=== PATIENT | female | born 1980 | race Caucasian/White ===

== ENCOUNTER 2020-11-18 10:57 | Outpatient (REF) | payer OTHER, SELFPAY ==
--- NOTE | ~2020-11-18 | MM_ITS ---
EXAMINATION: MM SCREENING DIGITAL BREAST TOMOSYNTHESIS, BILATERAL CLINICAL INFORMATION: Screening. Asymptomatic. The lifetime risk of breast cancer based on the Tyrer-Cuzick Model is 14%. COMPARISON: Mammography: 10/16/2019, 09/17/2018 TECHNIQUE: Digital breast tomosynthesis is performed in both the craniocaudal and mediolateral oblique views along with computer-aided detection (CAD). Synthesized 2D images are generated from the tomosynthesis. FINDINGS: There are scattered areas of fibroglandular density (ACR BI-RADS breast composition Category b). There are no significant masses, abnormal calcifications, or other abnormalities. No significant changes from prior studies MM/MM tomosynthesis screening BI IMPRESSION: No mammographic evidence of malignancy. ASSESSMENT: BI-RADS 1: Negative RECOMMENDATION: Routine annual mammography screening. This patient's information was entered into a reminder system with a target due date for their next mammogram.
== END 2020-11-18 10:58 | disposition home or self-care (01) ==
LOC: HO.MAMMO 10:57
PROVIDERS: PCP Internal Medicine; Visit Provider Internal Medicine
DX: Z12.31 Encounter for screening mammogram for malignant neoplasm of breast (principal)
CPT/HCPCS: 77063; 77067

== ENCOUNTER 2022-12-13 12:36 | Outpatient (REF) | payer OTHER, SELFPAY ==
--- NOTE | ~2022-12-13 | MM_ITS ---
EXAMINATION: MM SCREENING DIGITAL BREAST TOMOSYNTHESIS, BILATERAL CLINICAL INFORMATION: Screening. Asymptomatic. The lifetime risk of breast cancer based on the Tyrer-Cuzick Model is 13.1%. COMPARISON: Mammography: November 18, 2020 and studies dating back to September 17, 2018 TECHNIQUE: Digital breast tomosynthesis is performed in both the craniocaudal and mediolateral oblique views along with computer-aided detection (CAD). Synthesized 2D images are generated from the tomosynthesis. FINDINGS: The breasts are heterogeneously dense, which may obscure small masses (ACR BI-RADS breast composition Category c). There are no significant masses, abnormal calcifications, or other abnormalities. MM/MM tomosynthesis screening BI IMPRESSION: No significant changes from prior exam. ASSESSMENT: BI-RADS 1: Negative RECOMMENDATION: Routine annual mammography screening. This patient's information was entered into a reminder system with a target due date for their next mammogram.
== END 2022-12-13 12:37 | disposition home or self-care (01) ==
LOC: HO.MAMMO 12:36
PROVIDERS: PCP Internal Medicine; Visit Provider Internal Medicine
DX: Z12.31 Encounter for screening mammogram for malignant neoplasm of breast (principal)
CPT/HCPCS: 77063; 77067

== ENCOUNTER 2023-01-16 10:14 | Outpatient (REF) | payer OTHER, SELFPAY ==
[2023-01-19 08:54] LABS: HPV mRNA E6/E7 rflx Not Detected (Not Detected)
== END 2023-01-16 10:15 | disposition home or self-care (01) ==
LOC: HO.LNP 10:14
PROVIDERS: PCP Internal Medicine; Visit Provider Advanced Practice Midwife
DX: Z01.419 Encounter for gynecological examination (general) (routine) without abnormal findings (principal); N84.1 Polyp of cervix uteri
CPT/HCPCS: 87624; 88142

== ENCOUNTER 2023-01-24 10:20 | Outpatient (REF) | payer OTHER, SELFPAY | END 2023-01-24 10:21 | disposition home or self-care (01) | LOC: HO.LAB 10:20 | PROVIDERS: PCP Internal Medicine; Visit Provider Advanced Practice Midwife | DX: N84.1 Polyp of cervix uteri (principal) | CPT/HCPCS: 57500; 81025; 88305 ==

== ENCOUNTER 2023-12-17 12:42 | Outpatient (REF) | payer OTHER, SELFPAY ==
--- NOTE | ~2023-12-17 | MM_ITS ---
EXAMINATION: MM SCREENING DIGITAL BREAST TOMOSYNTHESIS, BILATERAL CLINICAL INFORMATION: Screening. Asymptomatic. COMPARISON: Mammography: 12/13/2022, 11/18/2020, 10/16/2019, and 09/17/2018. TECHNIQUE: Digital breast tomosynthesis is performed in both the craniocaudal and mediolateral oblique views along with computer-aided detection (CAD). Synthesized 2D images are generated from the tomosynthesis. FINDINGS: The breasts are heterogeneously dense, which may obscure small masses (ACR BI-RADS breast composition Category c). There are no suspicious masses, suspicious grouped calcifications, or areas of architectural distortion in either breast. The parenchymal pattern is stable from prior exams. No skin or axillary abnormality. MM/MM tomosynthesis screening BI IMPRESSION: No mammographic evidence of malignancy. ASSESSMENT: BI-RADS BI-RADS 1 - Negative RECOMMENDATION: Routine annual mammography screening. 1 year F/U This examination should not preclude the clinical evaluation of a suspicious palpable abnormality. This patient's information was entered into a reminder system with a target due date for their next mammogram.
== END 2023-12-17 12:43 | disposition home or self-care (01) ==
LOC: HO.MAMMO 12:42
PROVIDERS: PCP Internal Medicine; Visit Provider Internal Medicine
DX: Z12.31 Encounter for screening mammogram for malignant neoplasm of breast (principal)
CPT/HCPCS: 77063; 77067

== ENCOUNTER → 2023-12-17 12:45 | Outpatient (BNV) | payer OTHER, SELFPAY | PROVIDERS: PCP Internal Medicine; Visit Provider Radiology Diagnostic Radiology | DX: Z12.31 Encounter for screening mammogram for malignant neoplasm of breast (principal) | CPT/HCPCS: 77063; 77067 ==

== ENCOUNTER 2024-04-13 11:19 | Outpatient (AMB) | payer OTHER, SELFPAY ==
--- NOTE | 2024-04-13 12:34 | AM.OFFWIN_ITS ---
Intake Vital Signs 04/13/24 12:36 Height 5 ft 8 in Weight 95.254 kg BMI 31.9 BP 130/98 H Blood Pressure Location Rt brachial Position Sitting Pulse 99 Pulse Source Pulse Oximeter Pulse Oximetry (%) 99 Oxygen Delivery Method Room Air Intake Visit Reasons: EP neck pain, dizzy, nausea, headache Intake Note: Patient there for neck injury that happened on Saturday. Patient Tobacco Use Status: Former Tobacco user Allergies Wellbutrin Adverse Reaction (Unknown, Uncoded 04/13/24 13:49) jittery Do you need a note to return to daycare/school/sports/work: No HPI HPI Comments History of Present Illness Details Patient presents with headache, dizziness, nausea that began 3 days ago. Patient notes during intercourse with her she experienced a sudden onset headache that brought her to tears. She denies acute trauma that triggered the incident such as hitting her head or throwing her head back. Since this time she has had continuous throbbing headache is better and worse at times but continuous. She notes nausea and dizziness that have not let up. She has tried OTC NSAIDs without relief. Small amount of neck flexion increases throbbing headache at the base of her skull. She has no history of hypertension, aneurysm or any medical problems for that matter. She takes no daily medications. [facility] Surgical History Hx of tubal ligation Hx of section Family History Maternal Aunt Pancreatic cancer Social History Alcohol intake: current Alcohol intake frequency: a few times a month Patient Tobacco Use Status: Former Tobacco user Smoked in Last 30 Days: No Use of substances other than those prescribed or required for medical reasons: No Advance Directives: No Advance Directives Information Provided: Yes Do you have a plan to hurt others: No Plan Patient : No Sexual orientation: Straight/Heterosexual Gender identity: Female Review of Systems Const Reports as per HPI and Reports no additional complaints Eyes Reports no additional complaints Card Reports as per HPI and Reports no additional complaints Resp Reports as per HPI and Reports no additional complaints GI Reports as per HPI and Reports no additional complaints Skin/Breast Denies lesions Neuro Reports no additional complaints, Reports as per HPI and Denies Abnormal speech present Physical Exam Vital Signs: Last Vital Signs Pulse 99 04/13/24 12:36 BP 130/98 H 04/13/24 12:36 Pulse Ox 99 04/13/24 12:36 Oxygen Delivery Method Room Air 04/13/24 12:36 BMI result Body Mass Index 31.9 Const Other: Patient is a good historian General: cooperative, comfortable and no acute distress Orientation/consciousness: patient oriented x3 Eyes Pupils: Equal, round and reactive pupils present Neck Neck: Yes no lymphadenopathy, Yes no meningeal signs and Yes supple Resp Effort & Inspection: normal respiratory effort Auscultation: clear to auscultation bilaterally Cardio Rate: regular rate Rhythm: regular rhythm Heart sounds: S1 normal heart sound present and S2 normal heart sound present Back/Spine/Pelvis Cervical Spine: normal cervical lordosis, No cervical muscular tenderness, No cervical spasm and cervical ROM abnormal (10 degrees flexion of C-spine triggers throbbing pain at the base of the sk) Neuro Other: Negative Romberg normal speech General: patient oriented x3, gait normal, moves all extremities, no meningeal signs, no focal motor deficits and CN's II-XI intact bilaterally Cranial nerves: Yes CN's II-XII intact bilaterally, Yes Facial sensation intact/muscles of mastication intact, Yes Equal, round and reactive pupils present, Yes Bilaterally intact EOM present, Yes Nystagmus not present, Yes Midline tongue present and Yes Symmetric palate elevation present Cognition (Neuro): normal cognition Speech: No Abnormal speech present Gait exam (Neuro): Normal gait present Motor exam (neuro): 5/5 motor strength present throughout Coordination: Romberg test negative Romberg Test: Negative Assessment & Plan Assessment & Plan (1) Headache associated with sexual activity: Code(s): G44.82 - Headache associated with sexual activity Plan: Advised patient that her HPI could be consistent with aneurysm or dissection. [place] [facility] [place] I have called in an expect to attending. 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 Follow-up with PCP post ER. Coding Level of Care Code Est Pt Level 4 (75130) Diagnoses Headache associated with sexual activity G44.82
[2024-04-13 12:36] VITALS: BP 130/98; PULSE 99; O2SAT 99; BMI 31.9
== END 2024-04-13 13:26 | disposition home or self-care (01) ==
PROVIDERS: PCP Internal Medicine; Visit Provider Physician Assistant
DX: G44.82 Headache associated with sexual activity (principal)
CPT/HCPCS: 99214

== ENCOUNTER 2024-04-13 13:34 | Emergency (ER) | payer OTHER, SELFPAY ==
--- NOTE | ~2024-04-13 | CT_ITS ---
EXAMINATION: CTA OF THE HEAD AND NECK CLINICAL INFORMATION: Pain. Concern for aneurysm. COMPARISON: None. TECHNIQUE: Test bolus sequences followed by intravenous administration 70 mL of Omnipaque 350. Helical imaging was performed in the axial plane from the mediastinum to the skull vertex. Delayed postcontrast imaging of the head was also performed. The data was processed at the agricultural engineering technologist's workstation for generation of MIP sequences. Three-dimensional volume rendered reformatted images were also generated at an offline 3-D workstation. Stenoses are assessed in accordance with NASCET criteria unless otherwise indicated. This CT examination was performed using dose optimization techniques as appropriate, variously including the following: *Automated exposure control *Adjustment of mA and/or kV according to patient size (this includes techniques or standardized protocols for targeted exams where dose is matched to indication/reason for exam; i.e. extremities or head) *Use of iterative reconstruction technique DLP: 2380 mGy-cm. FINDINGS: CT head: There is no evidence of acute intracranial hemorrhage or territorial infarction. There is no loss of sam to white matter differentiation. No abnormal mass effect or midline shift is seen. No extra-axial fluid collections are identified. There is no abnormal enhancement. The ventricles are normal in size. There is no abnormal attenuation within the brain parenchyma. The osseous structures and soft tissues are normal. The mastoid air cells and visualized portions of the paranasal sinuses are well aerated. Soft tissue in the external auditory canals may reflect impacted cerumen. CTA neck: The imaged aortic arch and origins of the great vessels are normal. The common carotid arteries are widely patent. The carotid bifurcations are normal. The cervical internal carotid arteries are normal. The vertebral arteries opacify normally and are of normal caliber. A heterogeneous 1.8 cm nodule is visible in the lower pole of the right thyroid lobe. There is moderate to severe spondylosis with disc space narrowing and disc-osteophyte complexes at the C5-C6 and C6-C7 levels. The imaged portions of the lungs are clear. CTA head: The intradural vertebral arteries and basilar artery are normal. The posterior cerebral arteries are widely patent. The internal carotid arteries are of normal caliber. The JENNI and MCA vascular complexes bilaterally are normal. The venous sinuses opacify normally. CT/CT angio head neck IMPRESSION: No acute process. Normal CT angiogram of the head and neck. Heterogeneous 1.7 nodule in the right thyroid lobe which could be further evaluated with follow-up sonography. Moderate spondylosis at the C5-C6 and C6-C7 levels.
[2024-04-13 13:47] VITALS: BP 171/103; PULSE 67; RESP 16; TEMP 37.2; O2SAT 98; BMI 31.9
--- NOTE | 2024-04-13 13:49 | ED.GENADULT ---
HPI - General Adult General Chief complaint: Neck Pain/Injury Stated complaint: neck inj sent in by [facility] Time Seen by Provider: 04/13/24 13:55 Source: patient Mode of arrival: ambulatory Limitations: no limitations History of Present Illness ED Provider: DR. Giraldo HPI narrative: 3 days prior patient had sudden neck and head pain during sex, she had constant headache and neck pain with nausea Onset (ago): day(s) Related Data Previous Rx's ?Medication ?Instructions ?Recorded metoprolol succinate 50 mg 50 mg PO DAILY #20 tabs 04/13/24 tablet,extended release 24 hr Allergies Allergy/AdvReac Type Severity Reaction Status Date / Time Wellbutrin AdvReac Unknown jittery Uncoded 04/13/24 13:49 Review of Systems Review of Systems: Yes all other systems are reviewed and are negative Neurologic: Denies Sensory deficit (Neuro) PMFSH Past Medical History Surgical History Hx of tubal ligation Hx of section Family History Family History Maternal Aunt Pancreatic cancer Social History Social History Alcohol intake: current Alcohol intake frequency: a few times a month Patient Tobacco Use Status: Former Tobacco user Smoked in Last 30 Days: No Use of substances other than those prescribed or required for medical reasons: No Advance Directives: No Advance Directives Information Provided: Yes Do you have a plan to hurt others: No Plan Patient : No Sexual orientation: Straight/Heterosexual Gender identity: Female Physical Exam ED Vital Signs: Vital Signs - 24 hr 04/13/24 13:47 04/13/24 14:12 04/13/24 14:13 Temperature 98.9 F 98.2 F Pulse Rate 67 65 65 Respiratory Rate 16 17 Blood Pressure 171/103 H 147/102 H 147/102 H Pulse Oximetry 98 100 Oxygen Delivery Method Room Air Room Air 04/13/24 16:41 Temperature 97.1 F Pulse Rate 60 Respiratory Rate 16 Blood Pressure 127/84 Pulse Oximetry 100 Oxygen Delivery Method Room Air BMI result Body Mass Index 31.9 Const General: healthy appearing Nutritional Appearance: average body habitus Orientation/consciousness: oriented to person and patient oriented x3 Limitations: no limitations HENMT Head: Yes normal to inspection Ears: external ears normal General nose exam: Normal external nose present Mouth: Normal oral and palatal mucosa present and oropharynx normal Throat: Yes posterior oropharynx normal Eyes General: appearance normal, both eyes and all related structures Neck Neck: Yes normal visual inspection Chest Chest palpation & inspection: normal inspection of the chest Resp Auscultation: clear to auscultation bilaterally Cardio Jugular venous distension: no JVD Rate: regular rate Rhythm: regular rhythm Heart sounds: S1 normal heart sound present and S2 normal heart sound present GI Inspection: Yes normal to inspection Palpation (GI): Soft to palpation, nontender and No hepatosplenomegaly present Auscultation: normal bowel sounds General: Yes no CVA tenderness Back/Spine/Pelvis Back: no CVA tenderness Skin General skin exam: no rashes or lesions noted Neuro General: oriented to person and patient oriented x3 Cranial nerves: Yes CN's II-XII intact bilaterally Motor exam (neuro): 5/5 motor strength present throughout Sensory Exam: No Sensory deficit (Neuro) Extrem General: Yes normal to inspection Psych Appearance: grossly normal Course Course Course Narrative: RME performed by Candace Banuelos PA-C. Patient is a 43 year old assigned female at presenting to the emergency department with a headache. Patient states that 3 days ago she was having intercourse with her when she a pop in the base of her skull that caused immediate pain and continues to be painful. Detailed physical exam and review of systems are deferred to the cash application clerk. Labs and imaging ordered. Patient placed back in the waiting room pending room availability and results. Reevaluation(s) Reevaluation #1: lowered bp with labetolol while waiting for CT results Time: 15:01 Reevaluation #2: no stroke no aneurysm will dc on metoprolol for HTN and follow up with pmd Time: 16:41 Reevaluation #3: I spent 40 minutes of critical care, with interventions, assessments, speaking to patient, consultants, and family. Time: 16:46 Medications Administered Discontinued Medications Generic Name Dose Route Start Last Admin Trade Name Freq PRN Reason Stop Dose Admin Iohexol 100 ml 04/13/24 14:59 04/13/24 15:00 Iohexol 350 Mg/Ml 100 Ml Infus..Btl IV 04/13/24 15:00 70 ml ONCE ONE Administration Labetalol HCl 10 mg 04/13/24 14:00 04/13/24 14:12 Labetalol Hcl 100 Mg/20 Ml Vial IVPUSH 04/13/24 14:01 10 mg ONCE ONE Administration Medical Decision Making Differential Diagnosis Differential Diagnoses: The differential diagnosis associated with the presentation includes (subarachnoid bleed, intraparenchymal bleed, dissection, aneurysm all considered) Admission/Observation Consideration of admission/observation: Escalation of care including admission/observation considered (upon arrival patient considered for admission) Lab Data 04/13/24 14:07 04/13/24 14:07 Labs: Lab Results 04/13/24 Range/Units 14:07 WBC 7.1 (4.8-10.8) X10*3/uL RBC 4.26 (4.20-5.50) X10*6/uL Hgb 13.7 (12.0-16.0) g/dl Hct 39.5 (37.0-47.0) % MCV 92.7 (80.0-98.0) fL MCH 32.2 (27.0-33.0) pg MCHC 34.7 (31.0-35.0) g/dl RDW 12.1 (11.0-16.0) % Plt Count 222 (160-400) X10*3/uL MPV 10.0 (9.4-12.3) fL Immature Gran % (Auto) 0.3 (0.0-0.4) % Neut % (Auto) 60.8 (45-73) % Lymph % (Auto) 30.4 (20-40) % Caldwell % (Auto) 6.2 (2-11) % Eos % (Auto) 1.6 (0-4) % Baso % (Auto) 0.7 (0-2) % Lymph # (Auto) 2.2 (1.2-4.9) X10*3/uL Caldwell # (Auto) 0.4 (0.1-1.2) X10*3/uL Eos # (Auto) 0.1 (0.0-0.4) X10*3/uL Baso # (Auto) 0.1 (0.0-0.2) X10*3/uL Abs Immat Gran (auto) 0.02 (0.00-0.03) X10*3/uL Absolute Neuts (auto) 4.3 (2.0-8.3) x10*3/uL Absolute Nucleated RBC 0.000 (0.0-0.012) X10*3/uL Nucleated RBC % (auto) 0.0 (0.0-0.2) /100WBC PT 10.8 L (11.1-13.3) SEC INR 0.9 (0.9-1.1) APTT 26.5 (26.0-36.8) SEC Sodium 141 (135-145) mmol/L Potassium 3.6 (3.3-5.1) mmol/L Chloride 106 (96-108) mmol/L Carbon Dioxide 27 (22-29) mmol/L Anion Gap 12 (12-20) BUN 11 (9-16) mg/dL Creatinine 0.84 (0.5-1.4) mg/dL Estim Creat Clear Calc 102.0 Estimated GFR > 60 Random Glucose 90 (60-115) mg/dL Calcium 9.6 (8.4-10.2) mg/dL Magnesium 2.4 (1.6-2.6) mg/dL Total Bilirubin 0.4 (0.0-1.0) mg/dL AST 19 (5-31) U/L ALT 18 (0-31) U/L Alkaline Phosphatase 50 (39-117) U/L Total Protein 7.4 (6.5-8.0) g/dL Albumin 4.6 (3.5-5.0) g/dL Independent Interpretation I performed an independent interpretation of an: CT Scan (no bleed no mass) Radiology Impression Discussion of test interpretation with radiology: I have reviewed the radiologist's reading. (and agree) Tests considered The following testing was considered but not selected: MRI considered but CTA negative Discharge Plan Discharge Clinical Impression: Headache, Hypertension Patient Disposition: Home, Self-Care Instructions: Hypertension (ED) Prescriptions: New metoprolol succinate 50 mg tablet extended release 24 hr 50 mg PO DAILY Qty: 20 0RF Referrals: Deandra Mayfield MD [Primary Care Provider] - 3 days Print Language: Nepali
[2024-04-13 14:11] LABS: MANUAL DIFF FLAG NO
[2024-04-13 14:12] VITALS: BP 147/102; PULSE 65
[2024-04-13] MEDS: Labetalol HCL 100 MG/20 ML VIAL 10 MG IVPUSH (14:12)
[2024-04-13 14:13] VITALS: BP 147/102; PULSE 65; RESP 17; TEMP 36.8; O2SAT 100
[2024-04-13 14:13] LABS: Basophils Absolute Auto 0.1 X10*3/uL (0.0-0.2); Basophils Percent Auto 0.7 % (0-2); Eosinophils Absolute Auto 0.1 X10*3/uL (0.0-0.4); Eosinophils Percent Auto 1.6 % (0-4); Hematocrit 39.5 % (37.0-47.0); Hemoglobin 13.7 g/dl (12.0-16.0); Imm Gran Abs Auto 0.02 X10*3/uL (0.00-0.03); Imm Gran Pct Auto 0.3 % (0.0-0.4); Lymphocytes Absolute Auto 2.2 X10*3/uL (1.2-4.9); Lymphocytes Percent Auto 30.4 % (20-40); Mean Corpuscular HGB Conc 34.7 g/dl (31.0-35.0); Mean Corpuscular Hemoglobin 32.2 pg (27.0-33.0); Mean Corpuscular Volume 92.7 fL (80.0-98.0); Monocytes Absolute Auto 0.4 X10*3/uL (0.1-1.2); Monocytes Percent Auto 6.2 % (2-11); Neutrophils Absolute Auto 4.3 x10*3/uL (2.0-8.3); Neutrophils Percent Auto 60.8 % (45-73); Platelet Count 222 X10*3/uL (160-400); Red Blood Count 4.26 X10*6/uL (4.20-5.50); Red Cell Distribution Width 12.1 % (11.0-16.0); White Blood Count 7.1 X10*3/uL (4.8-10.8)
[2024-04-13 14:19] LABS: INTERNATIONAL NORM RATIO 0.9 (0.9-1.1); Prothrombin Time 10.8 SEC (11.1-13.3)
[2024-04-13 14:21] LABS: Partial Thromboplastin Time 26.5 SEC (26.0-36.8)
[2024-04-13 14:36] LABS: Alanine Aminotransferase 18 U/L (0-31); Albumin Level 4.6 g/dL (3.5-5.0); Alkaline Phosphatase 50 U/L (39-117); Anion Gap 12 (12-20); Aspartate Amino Transferase 19 U/L (5-31); Bilirubin Total 0.4 mg/dL (0.0-1.0); Blood Urea Nitrogen 11 mg/dL (9-16); Calcium 9.6 mg/dL (8.4-10.2); Carbon Dioxide 27 mmol/L (22-29); Chloride 106 mmol/L (96-108); Estimated Glomerular Filt Rate > 60; Glucose Random 90 mg/dL (60-115); Magnesium 2.4 mg/dL (1.6-2.6); Potassium 3.6 mmol/L (3.3-5.1); Sodium 141 mmol/L (135-145); Total Protein 7.4 g/dL (6.5-8.0)
[2024-04-13] MEDS: iohexoL 350 MG/ML 100 ML INFUS..BTL IV (15:00)
[2024-04-13 16:41] VITALS: BP 127/84; PULSE 60; RESP 16; TEMP 36.2; O2SAT 100
[2024-04-13 16:56] VITALS: BP 142/92; PULSE 61; RESP 20; TEMP 36.1; O2SAT 96
== END 2024-04-13 16:57 | disposition home or self-care (01) ==
PROVIDERS: Physician Assistant Medical; Emergency Provider Emergency Medicine; PCP Internal Medicine
DX: R51.9 Headache, unspecified (principal); I10 Essential (primary) hypertension; M54.2 Cervicalgia; M79.609 Pain in unspecified limb; Z79.899 Other long term (current) drug therapy; Z87.891 Personal history of nicotine dependence
CPT/HCPCS: 36415; 70496; 70498; 80053; 83735; 85025; 85610; 85730; 96374; 99284; J1920; Q9967

== ENCOUNTER 2024-12-17 14:29 | Outpatient (REF) | payer OTHER, SELFPAY | END 2024-12-17 14:30 | disposition home or self-care (01) | LOC: HO.MAMMO 14:29 | PROVIDERS: PCP Nurse Practitioner Family; Visit Provider Nurse Practitioner Family | DX: Z12.31 Encounter for screening mammogram for malignant neoplasm of breast (principal) | CPT/HCPCS: 77063; 77067 ==

== ENCOUNTER → 2024-12-17 14:45 | Outpatient (BNV) | payer OTHER, SELFPAY | PROVIDERS: PCP Nurse Practitioner Family; Visit Provider Internal Medicine | DX: Z12.31 Encounter for screening mammogram for malignant neoplasm of breast (principal) | CPT/HCPCS: 77063; 77067 ==

== ENCOUNTER 2025-01-06 10:58 | Outpatient (AMB) | payer OTHER, SELFPAY ==
--- NOTE | 2025-01-06 11:00 | A.OFFPC_ITS ---
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 Required: No Allergies Wellbutrin Adverse Reaction (Severe, Uncoded 01/06/25 11:15) Shakiness Medication List - Last Reconciled 01/06/25 by ISAC Wolfe- No Known Home Meds Tobacco use date assessed: 01/06/25 Dental Screening Dental Screen Date: 01/06/25 Did you have a dental visit in the last 12 months?: Yes Did you have a dental problem in the last 6 months where you did not have access to dental care?: No Was dental information given to patient?: Patient has dentist HPI HPI Comments History of Present Illness Details 44 y/o F with HTN, family hx of pancreat ic ca (maternal aunt)Heterogeneous 1.7 nodule in the right thyroid lobe which could be further evaluated with follow-up sonography, Moderate spondylosis at the C5-C6 and C6-C7 levels (CTA 04/2024), perimenopause, obesity s/p polypectomy due to cervical polyp 2022, c section, tubal ligation Social: , 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 Optho Here to [facility]; presenting with new onset headaches. - In April, she experienced a severe head ache that felt like an explosion in the back of her head, prompting an ER visit where her blood pressure was noted to be high. - A CT scan was done, which returned neg ative for acute issues. - The patient trialed metoprolol but dec ided to stop medication, opting for lifestyle changes including the cessation of alcohol. Monitoring at home reports WNL - She has not experienced severe headach es since but does have occasional minor migraines with pressure behind the eyes, relieved by resting in a dark room & Aleve. - Patient notes association of the heada ches with perimenopausal symptoms, including mood swings. - The patient has experienced mood fluct uations and occasional anxiety linked to perimenopausal changes. Not on meds at this time. Declined counseling. - The patient has a history of TMJ, with symptoms recently reappearing potentially due to stress-induced jaw clenching. Last eye exam 1 year ago. + contacts. Sleeping well. + snoring. Has never had sleep study Exam Awake alert NAD PERRLA EOMI Neck FROM RRR LS CTAB No edema BLE Tearful at time but appropriate Nonfocal neuro exam I discussed with the patient her recent headaches and concluded that it would be prudent to investigate them further due to their new onset. We have arranged for a referral to a neurologist, which could potentially be canceled pending results from a suggested sleep study for possible sleep apnea. I emphasized that headaches like hers can sometimes coincide with perimenopausal symptoms but given her age, further evaluation by a neurologist is advisable. I suggested a sleep study since obstructive sleep apnea could be a contributor to headache symptoms; it can easily be conducted at home, offering a possible quicker resolution. Regarding the patient's anxiety and mood swings likely connected to perimenopause, we agreed that counseling was not preferred. We will monitor her labs for deficiencies or imbalances, including thyroid function and vitamin levels. She accepted the flu and Tdap vaccines, understanding they were due. Lastly, I recommended that she consult her OBGYN regarding hormone levels if desired, explaining the methodological challenges of testing hormone fluctuations clinically. Assessment: 1. Perimenopause: The patient exhibits m ood swings and anxiety linked to perimenopause. I will monitor and support her with lifestyle recommendations and provide further discussions as needed. 2. Hypertension: The patient's elevated BP during the ER visit was situational. We opted for lifestyle modifications, including alcohol cessation, and agreed on monitoring BP without immediate medication. 3. Headaches: Patient advised to undergo a sleep study for apnea. Referral to neurology provided, but may cancel depending on sleep study outcomes. 4. Temporomandibular joint disorder (TMJ ): Noted recent symptoms likely stress- induced. Suggested exercises and stress-relieving measures. 5. Anxiety secondary to perimenopause: M onitoring with lifestyle adaptation. Lab results will check for nutrient imbalances. 6. Depression, screening positive: Patie nt does not seek treatment currently. Will monitor and support as needed. Plan Labs today Sleep study Neuro referral which may be cancelled pending work up Home BP monitoring with low threshhold to treat Flu and Tdap today Call ISOBUTYLENE OPERATOR CHIEF to discuss hormone testing and perimenopause will need to fu on thyroid nodule @ next visit!! RTO in a few weeks to fu on labs, headaches, bp and sleep study results Patient was informed and verbally consented to the use of an ambient scribe for clinic note documentation during this visit. Total time spent caring for the patient today was 45 minutes. This includes time spent before the visit reviewing the chart, time spent during the visit, and time spent after the visit on documentation, reviewing laboratory results, diagnostic imaging, medications, performing a medically necessary evaluation, counseling on diagnoses, care coordination, ordering appropriate tests, ordering appropriate medications, review of tests performed by other providers, reporting test results with the patient, communication with other healthcare providers. [facility] Medical History (Updated 01/06/25 @ 15:12 by Robyn Sam, [facility]) Anxiety Sciatica Surgical History Hx of section Hx of tubal ligation Family History (Updated 01/06/25 @ 11:59 by Kaleb Marie MA) Maternal Aunt Pancreatic cancer Sister Asthma Clotting disorder Mother Clotting disorder Maternal Grandmother Pancreatic cancer Social History (Updated 01/06/25 @ 11:06 by Kaleb Marie MA) Household Members: Spouse and Children Both parents involved: No Caregiver staying overnight: No Housing: House Are you a primary cattle care worker to a significant other at home: Yes Do you presently have visiting nurse or other home services: No 75 years or older and lives alone: No Alcohol intake: current Alcohol intake frequency: a few times a month Patient Tobacco Use Status: Former Tobacco user e-Cigarette/Vaping Use: Never Used Second Hand Smoke Exposure: No Current occupational status: employed 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 1. Little interest or pleasure in doing things: not at all 2. Feeling down, depressed, or hopeless: several days 3. Trouble falling or staying asleep, or sleeping too much: several days 4. Feeling tired or having little energy: more than half the days 5. Poor appetite or overeating: not at all 6. Feeling bad about yourself - or that you are a failure or have let yourself or your family down: not at all 7. Trouble concentrating on things, such as reading the newspaper or watching television: not at all 8. Moving or speaking so slowly that other people could have noticed. Or the opposite - being so fidgety or restless that you have been moving around a lot more than usual: not at all 9. Thoughts that you would be better off or of hurting yourself in some way: not at all Total score: 4 Depression Screening Interpretation: Positive Depression Screening Follow-up: Existing condition Depression Screening Done: Yes 11711 - PHQ-9 Billing: Yes Source: Developed by Drs. Mainor Hogan, Starr Gutiérrez, Vladimir Liriano and colleagues, with an educational you from [employer]. Thrive Questionnaire Date Thrive assessed: 01/06/25 I am a: Patient What is your living situation today?: I have a steady place to live Within the past 12 months, did the food you bought not last and you didn't have the money to get more?: Never true Within the past 12 months, did you worry whether your food would run out before you got money to buy more?: Never true Do you have trouble paying for medicines?: No Do you have trouble getting transportation to medical appointments?: No Do you have trouble paying your heating and electricity bill?: No Do you have trouble taking care of your child, family member or friend?: No Do you have trouble with day-to-day activities such as bathing, preparing meals, shopping, managing finances, etc.?: No Are you currently unemployed and looking for a job?: No Are you interested in more education?: No Please select the resources that you would like help with: None Currently or been in a relationship where the following occur: No concerns reported THRIVE Score: 0 AUDIT C Alcohol Use Questionnaire (AUDIT-C) 1. How often do you have a drink containing alcohol?: Monthly or less 2. How many drinks containing alcohol do you have on a typical day when you are drinking?: 3 or 4 3. How often do you have six or more drinks on one occasion?: Less than monthly Total Score: 3 Score Reviewed/Action Taken: Yes DEDRA-7 AMB Questionnaire DEDRA-7 Date DEDRA - 7 assessed: 01/06/25 Feeling nervous, anxious, or on edge: 1 = Several days Not being able to stop or control worryin = Several days Worrying too much about different things: 1 = Several days Trouble relaxin = Several days Being so restless that it is hard to sit still: 0 = Not at all Becoming easily annoyed or irritable: 0 = Not at all Feeling afraid as if something awful might happen: 1 = Several days Total DEDRA-7 score (0-4 normal; 5-9 mild; 10-14 moderate; 15-21 severe): 5 Source: Developed by Drs. Mainor Hogan, Starr Gutiérrez, Vladimir Liriano and colleagues, with an educational you from [employer]. DEDRA-7 Assessment Billing DEDRA-7 Assessment Tool: DEDRA-7 Assessment 95583 Physical exam (Primary Care) Vital Signs: Last Vital Signs Temp 97.5 F 01/06/25 11:06 Pulse 68 01/06/25 11:06 Resp 13 01/06/25 11:06 BP 126/74 01/06/25 11:06 Pulse Ox 98 01/06/25 11:06 Oxygen Delivery Method Room Air 01/06/25 11:06 BMI result Body Mass Index 33.0 BMI Assessment/Plan discussion: High BMI High, discussed plan: lifestyle Tobacco/Smoking Status: Tobacco use Status Tobacco use date assessed 01/06/25 01/06/25 11:04 Patient Tobacco Use Status Former Tobacco user 01/06/25 11:06 e-Cigarette/Vaping Use Never Used 01/06/25 11:06 PHQ-9: PHQ-9 Score PHQ-9: Total score 4 01/06/25 11:59 Depression Screening Interpretation: Positive Depression Screening Follow-up: Existing condition Thrive Assessment: Date of Thrive Assessment Date Thrive assessed 01/06/25 01/06/25 11:04 Currently or been in a relationship where the following occur: No concerns reported Office Procedures Flu Questionnaire Does the patient have a severe egg allergy?: No Does the patient have severe life threatening allergies?: No Does the patient have a fever or illness today?: No Has the patient ever had Guillain-Premier Syndrome?: No Has the patient ever had any past reaction to a flu shot?: No Immunizations Fluarix Triv [id number] (PF) 45 mcg (15 mcg x 3)/0.5 mL IM syringe Performing Provider: TRAY Wolfe Performing Location: [facility] Administered by: Isabella Patel RN on 01/06/25 11:42 Dose Route Admin Location Dispensed Lot Number Expiration Date [facility] Clerk Cashier 0.5 mL IM Left Deltoid 0.5 mL [id number] 04/12/25 [id number] [facility] VIS Given Date VIS Provided VIS Publication Date 01/06/25 Single Vaccine 21 Eligibility Eligibility Date Funding Source Not VF Eligible 01/06/25 Private Administration Comments: Patient received two vaccines today in the left deltoid, the flu shot and then TDaP below and to the right. Boostrix Tdap 2.5 Lf unit-8 mcg-5 Lf/0.5 mL intramuscular syringe Performing Provider: TRAY Wolfe Performing Location: [facility] Administered by: Isabella Patel RN on 01/06/25 11:42 Dose Route Admin Location Dispensed Lot Number Expiration Date [facility] Clerk Cashier 0.5 mL IM Left Deltoid 0.5 mL [id number] 01/02/27 [id number] [employer] VIS Given Date VIS Provided VIS Publication Date 01/06/25 Single Vaccine 21 Eligibility Eligibility Date Funding Source Not VFC Eligible 01/06/25 Private Administration Comments: Patient received two vaccines today in the left de ltoid, the flu shot and then TDaP below and to the right. Coding Level of Care Code New Pt Level 4 (68509) Complex EM visit Add On G2211 Diagnoses Encounter to establish care Z76.89 New onset headache R51.9 DEDRA (generalized anxiety disorder) F41.1 History of hypertension Z86.79 Influenza vaccination administered at current visit Z23 Need for Tdap vaccination Z23 BMI 33.0-33.9,adult Z68.33 Class 1 obesity due to excess calories without serious comorbidity with body mass index (BMI) of 33.0 to 33.9 in adult E66.811; E66.09; Z68.33 Obesity type: due to excess calories Serious obesity comorbidity presence: without serious comorbidity Snoring R06.83 Perimenopause N95.1 Thyroid nodule E04.1 Additional Codes DEDRA-7 Assessment Billing - DEDRA-7 Assessment Tool: DEDRA-7 Assessment 99481 ([id number]) PHQ-9 - 19649 - PHQ-9 Billing: Yes ([id number]) Assessment & Plan Assessment & Plan (1) Encounter to establish care: Code(s): Z76.89 - Persons encountering health services in other specified circumstances Category: Medical (2) New onset headache: Code(s): R51.9 - Headache, unspecified Category: Medical (3) DEDRA (generalized anxiety disorder): Code(s): F41.1 - Generalized anxiety disorder Category: Medical (4) History of hypertension: Code(s): Z86.79 - Personal history of other diseases of the circulatory system Category: Medical (5) Influenza vaccination administered at current visit: Code(s): Z23 - Encounter for immunization Category: Medical (6) Need for Tdap vaccination: Code(s): Z23 - Encounter for immunization Category: Medical (7) BMI 33.0-33.9,adult: Code(s): Z68.33 - Body mass index [BMI] 33.0-33.9, adult Category: Medical (8) Class 1 obesity with body mass index (BMI) of 33.0 to 33.9 in adult: Code(s): E66.811 - Obesity, class 1; Z68.33 - Body mass index [BMI] 33.0-33.9, adult Category: Medical Qualifiers: Obesity type: due to excess calories Serious obesity comorbidity presence: without serious comorbidity Qualified Code(s): E66.811 - Obesity, class 1; E66.09 - Other obesity due to excess calories; Z68.33 - Body mass index [BMI] 33.0-33.9, adult (9) Snoring: Code(s): R06.83 - Snoring Category: Medical (10) Perimenopause: Code(s): N95.1 - Menopausal and female climacteric states Category: Medical (11) Thyroid nodule: Comment: Heterogeneous 1.7 nodule in the right thyroid lobe which could be further evaluated with follow-up sonography, (CTA 04/2024), Code(s): E04.1 - Nontoxic single thyroid nodule Category: Medical Plan . Orders: Orders Complete Blood Count no Diff Today R51.9 - Headache, unspecified Comprehensive Met. Panel Today R51.9 - Headache, unspecified Lipid Panel Today R51.9 - Headache, unspecified TSH reflex Free T4 Today R51.9 - Headache, unspecified Vitamin D 25-OH Total Today R51.9 - Headache, unspecified RT home sleep study Today R06.83 - Snoring, R51.9 - Headache, unspecified Influenza [id number] Immunization Today Z23 - Encounter for immunization Hemoglobin A1c Today R51.9 - Headache, unspecified IRON PROFILE Today R51.9 - Headache, unspecified Microalbumin, Random (w Creat) Today R51.9 - Headache, unspecified Vitamin B12 and Folate Today R51.9 - Headache, unspecified Ferritin Today R51.9 - Headache, unspecified TDaP Immunization Today Z23 - Encounter for immunization Referrals Neurology Referral R51.9 - Headache, unspecified Patient Instructions: Walk-In Care (Urgent Care): We Make it Easy Walk-in for urgent medical issues such as: ? Seasonal Allergies ? Insect Bites ? Cough ? Diarrhea ? Acute Asthma Attacks ? Back, Knee or Joint Pain ? Ear Infection ? Fever without a Rash ? Headaches ? Nausea ? Manuel Garcia Ii Eye, Rash or Skin Irritation ? Sore Throat ? Sports Physicals ? Vomiting Most insurances are accepted. Patients do not need to be part of the [facility] to seek care at the walk-in clinic. Locations [facility] , [place] [address] ? [phone] [facility] Walk-In Care in [place] provides services to ages 18 and over. Open Saturday-Saturday: 8 a.m. to 5 p.m. and Saturday: 9 a.m. to 3 p.m.* *Hours may vary due to staffing availability. To confirm Walk-In Care hours in [place], please call [phone]. [address] [place] [address] ? [phone] [facility] Walk-In Care in [place] provides services to ages 12 and over. Open Saturday-Saturday: 8 a.m. to 5 p.m. Hours may vary due to staffing availability. To confirm Walk-In Care hours in [place], please call [phone]. LABORATORY SERVICES: [facility] Lab ? Primary Location [address] [facility] Saturday through Saturday 6:00 AM ? 5:00 PM Saturday 7:00 AM ? 11:00 AM* [phone] The [facility] Lab is centrally located near the front entrance of the [facility] for easy outpatient access. Convenient parking is provided for outpatients. *Hours may vary due to staffing availability. To confirm Laboratory hours for any location, please call [phone]. Offsite Location For your convenience, we offer offsite laboratory draw stations at the following locations: [address] [place] [address] ? [facility] [address], [address] Saturday through Saturday 7:30 AM ? 1:00 PM* [phone] *Hours may vary due to staffing availability. To confirm Laboratory hours for any location, please call [phone]. [place] ? [address] Saturday through Saturday 6:00 AM ? 3:30 PM* Saturday 6:30 AM ? 3 PM* [phone] *Hours may vary due to staffing availability. To confirm Laboratory hours for any location, please call [phone] [place] [address] Saturday through Saturday 7:30 AM ? 4:00 PM* [phone] *Hours may vary due to staffing availability. To confirm Laboratory hours for any location, please call [phone] [place] [address] Saturday through 9:00 AM ? 4:00 PM* *Hours may vary due to staffing availability. To confirm Laboratory hours for any location, please call [phone]. Appointments are not necessary. Walk-ins are welcome. Like all the departments throughout the [facility], our Lab undergoes frequent reviews to ensure the quality and accuracy of test results, and our staff takes special pride in its status as a nationally accredited facility. Patient Portal: ONE PATIENT. ONE RECORD. BETTER CARE. [facility] has a fully integrated, cutting- edge mobile electronic health information system that has revolutionized the way we care for our patients and manage our organization. This system improves communication and coordination enabling us to provide safe, higher-quality care, and an overall positive experience for staff and patients. Our first priority, as always, is to deliver the highest quality care possible. The system is running in the background supporting that priority. This portal is for all [facility] services and practices. If you are experiencing any technical difficulties with enrolling or logging into the Patient Portal please complete the [facility] Patient Portal Technical Support Form. [facility] now offers a new secure on-line interactive tool for patients to review their health information ? ?Patient Portal. This interactive web portal will enable patients and their families to take an active role in their care by providing easy, secure access to their health information via the internet. The Patient Portal provides patients with instant access to their health information, including laboratory results, medications, allergies, demographic information, visit history, and more. In addition to managing their own care, parents and health care proxies with authorized consent will appreciate the ability to access the records of those individuals for whom they provide care. Please note: if you wish to gain access (Proxy) to another patient?s portal, you will be required to come to the Medical Records Department in person at [facility]. Both the patient giving proxy access and the proxy will need to provide photo identification and complete the appropriate authorization. The Patient Portal also allows track their appointments online. The [facility] Patient Portal also saves patients time by allowing them to submit updates to their demographic and contact information prior to their visits. Portal email notifications will also alert patients to any new activity on their portal, such as test results and new appointments. In order to initially enroll in the [facility] Patient Portal, you will need to enter some required information including the following: * your [facility] Medical Record number * your personal home email address * name * date of Please note: In order to enroll in the [facility] Patient Portal, we need to have your email address on file in your electronic medical record. ?The email address needs to be specific for one person (yourself) in order for your Portal enrollment to be successful. ?You can update your email address in person with our Registration staff when you are registering for a hospital visit. ?Otherwise, you will need to come to the Health Information Management (Medical Records) Department at [facility]. ?We are open from Saturday ? Saturday from 7:30 a.m. ? 4:30 p.m. ?You will be required to present a photo id. Once you have successfully enrolled in the Patient Portal, you will receive a one-time user id and password for the Portal, sent to your email address. ?This will allow you to log into the Patient Portal within 99 hrs and reset your own logon id and password, and define personal security questions. ?Once your p ermanent login and password have been set, you can log into the [facility] Patient Portal at any time via the blue button above or from the Portal Logon button on any page of the [facility] website. [facility] and [facility] encourage all of our patients to enroll in Patient Portal as it presents a valuable opportunity for patients and their families to actively participate in their care and stay healthy Welcome to [facility]. ?We look forward to working with you.
[2025-01-06 11:06] VITALS: BP 126/74; PULSE 68; RESP 13; TEMP 36.4; O2SAT 98; BMI 33.0
== END 2025-01-06 11:40 | disposition home or self-care (01) ==
LOC: HO.HMCFM 10:59
PROVIDERS: PCP Nurse Practitioner Family; Visit Provider Nurse Practitioner Family
DX: Z76.89 Persons encountering health services in other specified circumstances (principal); R51.9 Headache, unspecified; F41.1 Generalized anxiety disorder; Z86.79 Personal history of other diseases of the circulatory system; Z23 Encounter for immunization; Z68.33 Body mass index [BMI] 33.0-33.9, adult; E66.811 Obesity, class 1; E66.09 Other obesity due to excess calories; R06.83 Snoring; N95.1 Menopausal and female climacteric states; E04.1 Nontoxic single thyroid nodule

== ENCOUNTER → 2025-01-06 10:58 | Outpatient (BNVA) | payer OTHER, SELFPAY | PROVIDERS: PCP Nurse Practitioner Family; Visit Provider Nurse Practitioner Family | DX: Z76.89 Persons encountering health services in other specified circumstances (principal); Z23 Encounter for immunization; R51.9 Headache, unspecified; F41.1 Generalized anxiety disorder; E66.811 Obesity, class 1; E66.09 Other obesity due to excess calories; Z68.33 Body mass index [BMI] 33.0-33.9, adult; R06.83 Snoring; N95.1 Menopausal and female climacteric states; E04.1 Nontoxic single thyroid nodule; Z86.79 Personal history of other diseases of the circulatory system | CPT/HCPCS: 90471; 90472; 90656; 90715; 96127 ==

== ENCOUNTER 2025-01-23 07:02 | Outpatient (REF) | payer OTHER, SELFPAY ==
[2025-01-23 08:10] LABS: Hematocrit 38.8 % (37.0-47.0); Hemoglobin 13.2 g/dl (12.0-16.0); Mean Corpuscular Hemoglobin 31.2 pg (27.0-33.0); Mean Corpuscular Volume 91.7 fL (80.0-98.0); Mean Platelet Volume 10.5 fL (9.4-12.3); Platelet Count 235 X10*3/uL (160-400); Red Blood Count 4.23 X10*6/uL (4.20-5.50); Red Cell Distribution Width 11.8 % (11.0-16.0); White Blood Count 6.3 X10*3/uL (4.8-10.8)
[2025-01-23 08:20] LABS: Estimated Average Glucose 103 mg/dL; Hemoglobin A1C 116.5598 umol/L; Hemoglobin A1c % 5.2 % (<6.0); Total Hemoglobin (HGBA1C) 3467.1938 umol/L
[2025-01-23 08:41] LABS: Creatinine Urine 183.01 mg/dL; Microalbum/Creatinine Ratio Ur 9.2 ug/mg cr (<30)
[2025-01-23 08:53] LABS: Alanine Aminotransferase 15 U/L (0-31); Albumin Level 4.3 g/dL (3.5-5.0); Alkaline Phosphatase 58 U/L (39-117); Anion Gap 10 (12-20); Aspartate Amino Transferase 17 U/L (5-31); Bilirubin Total 0.4 mg/dL (0.0-1.0); Blood Urea Nitrogen 13 mg/dL (9-16); Carbon Dioxide 24 mmol/L (22-29); Chloride 111 mmol/L (96-108); Cholesterol 180 mg/dL (<200); Estimated Glomerular Filt Rate > 60; Glucose Random 99 mg/dL (60-115); HDL Cholesterol 49 mg/dL (>40); Iron 57 mcg/dL (30-160); LDL Cholesterol Calculated 111 mg/dL (<100); Percent Iron Saturation 20 % (15-50); Potassium 4.2 mmol/L (3.3-5.1); Sodium 141 mmol/L (135-145); Total Iron Binding Capacity 285 mcg/dL (228-428); Total Protein 6.9 g/dL (6.5-8.0); Triglycerides 104 mg/dL (<150); Unsaturated Iron Binding 228 ug/dL
[2025-01-23 09:07] LABS: Ferritin 40 ng/mL (10-250); Vitamin D 25-OH Total 35.1 ng/mL (>30)
[2025-01-23 09:15] LABS: Folate 13.6 ng/mL (> or = 4.0); Vitamin B12 578 pg/mL (200-900)
== END 2025-01-23 07:03 | disposition home or self-care (01) ==
LOC: HO.LAB 07:02
PROVIDERS: PCP Nurse Practitioner Family; Visit Provider Nurse Practitioner Family
DX: R51.9 Headache, unspecified (principal); Z13.1 Encounter for screening for diabetes mellitus; Z13.0 Encounter for screening for diseases of the blood and blood-forming organs and certain disorders involving the immune mechanism; Z13.29 Encounter for screening for other suspected endocrine disorder; Z13.220 Encounter for screening for lipoid disorders
CPT/HCPCS: 36415; 80053; 80061; 82043; 82306; 82570; 82607; 82728; 82746; 83036; 83540; 84443; 85027

== ENCOUNTER 2025-02-17 09:32 | Outpatient (AMB) | payer OTHER, SELFPAY ==
--- NOTE | 2025-02-17 09:37 | MHC.PC.OV ---
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 Required: No Allergies Wellbutrin Adverse Reaction (Severe, Uncoded 02/17/25 09:58) Shakiness Medication List - Last Reconciled 02/17/25 by ISAC Wolfe- No Known Home Meds Tobacco use date assessed: 01/06/25 Dental Screening Dental Screen Date: 01/06/25 HPI HPI Comments History of Present Illness Details 44 y/o F with HTN, family hx of pancreatic ca (maternal aunt)Heterogeneous 1.7 nodule in the right thyroid lobe which could be further evaluated with follow-up sonography, Moderate spondylosis at the C5-C6 and C6-C7 levels (CTA 04/2024), perimenopause, obesity s/p polypectomy due to cervical polyp 2022, c section, tubal ligation Social: , 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 Optho History of Present Illness - The patient is a 44 year old female presenting with follow-up for hypertension, headaches, and review of laboratory results. - Hypertension is reported to be stable, with at-home monitoring yielding satisfactory blood pressure readings. SBP < 120;has reduced salt in diet; no etoh since Oct 2024 - There is a noted reduction in the frequency of headaches. Sleep study 03/09/25 - A thyroid nodule has been previously identified and further assessment is in progress. Exam Awake alert NAD PERRLA EOMI Neck FROM, thyroid nontender, trachea midline RRR LS CTAB No edema BLE Mood and affect appropriate Nonfocal neuro exam Results Labs 01/23/25 LDL 111 otherwise labs wNL - Tests and Diagnostics: - Previous ultrasound identifying a thyroid nodule Discussion Notes I reviewed with the patient the management plan for her essential hypertension, which appears stable with current lifestyle modifications and home monitoring. The lab results were discussed, noting an LDL level of 111, slightly elevated, and I encouraged continued dietary monitoring to address this. Despite a decrease in headache frequency, the neurology referral stands, and I discussed the future sleep study scheduled for March 09, 2025, as a further assessment to explore possible underlying causes for the headaches. We spoke about the identified thyroid nodule, and I have recommended a dedicated ultrasound for further characterization; potential biopsy will be dependent on these findings. Referral to endocrinology will be arranged if the nodule warrants biopsy, particularly if further investigation by an organic search lead is indicated. I confirmed the importance of follow-up based on these clinical evaluations, with a review of the results to be discussed in future consultations. Our conversation included amenability for telehealth for the subsequent follow-up. Assessment and Plan 1. HX of Hypertension The patient's hypertension remains stable with the current lifestyle management. No changes to the treatment regimen are needed at this time. 2. Headache Headache frequency has decreased. Further evaluation continues with the scheduled sleep study. Neuro referral in place, but ok to cancel if sleep study + 3. Thyroid Nodule Further evaluation with a dedicated thyroid ultrasound is planned to assess the thyroid nodule, with potential biopsy and endocrinological follow-up as indicated. Patient Instructions - Continue monitoring blood pressure at home and maintain current lifestyle practices. - Follow scheduled sleep study appointment on March 09, 2025. - Look out for any changes in symptoms and report any significant alterations. - Telehealth visit March for sleep study and thyroid results Consent. Patient was informed and verbally consented to the use of an ambient scribe for clinic note documentation during this visit. Total time spent caring for the patient today was 31 minutes. This includes time spent before the visit reviewing the chart, time spent during the visit, and time spent after the visit on documentation, reviewing laboratory results, diagnostic imaging, medications, performing a medically necessary evaluation, counseling on diagnoses, care coordination, ordering appropriate tests, ordering appropriate medications, review of tests performed by other providers, reporting test results with the patient, communication with other healthcare providers. [facility] Medical History (Updated 01/06/25 @ 15:12 [facility] Anxiety Sciatica Surgical History Hx of section Hx of tubal ligation Family History (Updated 01/06/25 @ 11:59 by Kaleb Marie MA) Maternal Aunt Pancreatic cancer Sister Asthma Clotting disorder Mother Clotting disorder Maternal Grandmother Pancreatic cancer Social History (Updated 01/06/25 @ 11:06 by Kaleb Marie MA) Household Members: Spouse and Children Both parents involved: No Caregiver staying overnight: No Housing: House Are you a primary rn managed care to a significant other at home: Yes Do you presently have visiting nurse or other home services: No 75 years or older and lives alone: No Alcohol intake: current Alcohol intake frequency: a few times a month Patient Tobacco Use Status: Former Tobacco user e-Cigarette/Vaping Use: Never Used Second Hand Smoke Exposure: No Current occupational status: employed 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 1. Little interest or pleasure in doing things: not at all 2. Feeling down, depressed, or hopeless: not at all 3. Trouble falling or staying asleep, or sleeping too much: not at all 4. Feeling tired or having little energy: not at all 5. Poor appetite or overeating: not at all 6. Feeling bad about yourself - or that you are a failure or have let yourself or your family down: not at all 7. Trouble concentrating on things, such as reading the newspaper or watching television: not at all 8. Moving or speaking so slowly that other people could have noticed. Or the opposite - being so fidgety or restless that you have been moving around a lot more than usual: not at all 9. Thoughts that you would be better off or of hurting yourself in some way: not at all Total score: 0 Depression Screening Interpretation: Negative Depression Screening Done: Yes 28294 - PHQ-9 Billing: Yes Source: Developed by Drs. Mainor Hogan, Starr Gutiérrez, Vladimir Liriano and colleagues, with an educational you from [employer]. Thrive Questionnaire Date Thrive assessed: 02/17/25 I am a: Patient What is your living situation today?: I have a steady place to live Within the past 12 months, did the food you bought not last and you didn't have the money to get more?: Never true Within the past 12 months, did you worry whether your food would run out before you got money to buy more?: Never true Do you have trouble paying for medicines?: No Do you have trouble getting transportation to medical appointments?: No Do you have trouble paying your heating and electricity bill?: No Do you have trouble taking care of your child, family member or friend?: No Do you have trouble with day-to-day activities such as bathing, preparing meals, shopping, managing finances, etc.?: No Are you currently unemployed and looking for a job?: No Are you interested in more education?: No Please select the resources that you would like help with: None Currently or been in a relationship where the following occur: No concerns reported THRIVE Score: 0 DEDRA-7 AMB Questionnaire DEDRA-7 Date DEDRA - 7 assessed: 02/17/25 Feeling nervous, anxious, or on edge: 0 = Not at all Not being able to stop or control worryin = Not at all Worrying too much about different things: 0 = Not at all Trouble relaxin = Not at all Being so restless that it is hard to sit still: 0 = Not at all Becoming easily annoyed or irritable: 0 = Not at all Feeling afraid as if something awful might happen: 0 = Not at all Total DEDRA-7 score (0-4 normal; 5-9 mild; 10-14 moderate; 15-21 severe): 0 Source: Developed by Drs. Mainor Hogan, Starr Gutiérrez, Vladimir Liriano and colleagues, with an educational you from [employer]. DEDRA-7 Assessment Billing DEDRA-7 Assessment Tool: DEDRA-7 Assessment 14935 Physical exam (Primary Care) Vital Signs: Last Vital Signs Temp 97.2 F 02/17/25 09:41 Pulse 68 02/17/25 09:41 Resp 12 02/17/25 09:41 BP 118/70 02/17/25 09:41 Pulse Ox 99 02/17/25 09:41 Oxygen Delivery Method Room Air 02/17/25 09:41 BMI result Body Mass Index 32.7 Tobacco/Smoking Status: Tobacco use Status Tobacco use date assessed 01/06/25 02/17/25 09:37 Patient Tobacco Use Status Former Tobacco user 02/17/25 09:37 e-Cigarette/Vaping Use Never Used 02/17/25 09:37 PHQ-9: PHQ-9 Score PHQ-9: Total score 0 02/17/25 09:39 Depression Screening Interpretation: Negative Thrive Assessment: Date of Thrive Assessment Date Thrive assessed 02/17/25 02/17/25 09:39 Currently or been in a relationship where the following occur: No concerns reported Coding Level of Care Code Est Pt Level 4 (65705) Complex EM visit Add On G2211 Diagnoses Thyroid nodule E04.1 History of hypertension Z86.79 New onset headache R51.9 Perimenopause N95.1 Snoring R06.83 Additional Codes DEDRA-7 Assessment Billing - DEDRA-7 Assessment Tool: DEDRA-7 Assessment 33049 ([id number]) PHQ-9 - 76478 - PHQ-9 Billing: Yes ([id number]) Assessment & Plan Assessment & Plan (1) Thyroid nodule: Comment: Heterogeneous 1.7 nodule in the right thyroid lobe which could be further evaluated with follow-up sonography, (CTA 04/2024), Code(s): E04.1 - Nontoxic single thyroid nodule Category: Medical (2) History of hypertension: Code(s): Z86.79 - Personal history of other diseases of the circulatory system Category: Medical (3) New onset headache: Code(s): R51.9 - Headache, unspecified Category: Medical (4) Perimenopause: Code(s): N95.1 - Menopausal and female climacteric states Category: Medical (5) Snoring: Code(s): R06.83 - Snoring Category: Medical Plan . Orders: Orders US thyroid Today E04.1 - Nontoxic single thyroid nodule
[2025-02-17 09:41] VITALS: BP 118/70; PULSE 68; RESP 12; TEMP 36.2; O2SAT 99; BMI 32.7
--- OUTSIDE RECORDS SUMMARY | 2025-02-17 10:23 | XMS_ITS | Clinical Summary ---
Author Organization [employer] Address [address] [place] [address] Care Team Providers Care Analytics Developer Name Role Phone Unavailable Primary Care Provider Unavailabl e Immunizations Name Administration Dates Next Due Moderna Covid-19 Vaccine 6+ Bivalent 10/11/2022 Social History Tobacco Use Types Packs/Day Years Used Date Smoking Tobacco: Never Assessed Comments Unknown Sex and Gender Information Value Date Recorded Sex Assigned at Female 10/11/2022 4:33 PM EST Legal Sex Female 8:34 PM EDT Gender Identity Female 10/11/2022 4:33 PM EST Sexual Orientation Straight 10/11/2022 4: 33 PM EST Plan of Treatment Health Maintenance Due Date Last Done Comments CT Colonography 1978 Colonoscopy 1978 Colorectal Cancer Screening 1978 Depression Screening 1978 FIT DNA/Cologuard 1978 FIT 1978 FOBT 1978 HIV Screening 1978 SDOH Screening 1978 Sigmoidoscopy 1978 Alcohol/Substance Use Screening 1990 Tobacco Screening 1990 Family Planning (PISQ) 1993 Hepatitis C Screening 1996 Hepatitis B Vaccines (1 of 3 - 19+ 3-dose series) 1997 Pap Smear 1999 Cervical Cancer Screening 2008 HPV/Cotest 2008 Mammogram 2018 DTaP/Tdap/Td Vaccines (2 - T d or Tdap) 01/16/2021 01/16/2011 COVID-19 Vaccine (2 - 2023-2 5 season) 2024 10/11/2022 Influenza Vaccine (#1) 2024 Zoster Vaccines (1 of 2) 2028 RSV Patients and Pa tients Aged 60 years or older (1 - 1-dose 75+ series) 2053 HIB Vaccines Aged Out No longer eligi ble based on patient's age to complete this topic HPV Vaccines Aged Out No longer eligi ble based on patient's age to complete this topic Hepatitis A Vaccines Aged Out No long er eligible based on patient's age to complete this topic IPV Vaccines Aged Out No longer eligi ble based on patient's age to complete this topic Meningococcal Vaccine Aged Out No yi philomena eligible based on patient's age to complete this topic Pneumococcal Vaccine: Pediat rics (0 to 5 Years) and At-Risk Patients (6 to 49) Years) Aged Out No longer elig ible based on patient's age to complete this topic RSV under 20 months Aged Out No longe r eligible based on patient's age to complete this topic Rotavirus Vaccines Aged Out No longer eligible based on patient's age to complete this topic [facility]
== END 2025-02-17 10:12 | disposition home or self-care (01) ==
LOC: HO.HMCFM 09:33
PROVIDERS: PCP Nurse Practitioner Family; Visit Provider Nurse Practitioner Family
DX: E04.1 Nontoxic single thyroid nodule (principal); Z86.79 Personal history of other diseases of the circulatory system; R51.9 Headache, unspecified; N95.1 Menopausal and female climacteric states; R06.83 Snoring

== ENCOUNTER → 2025-02-17 09:32 | Outpatient (BNVA) | payer OTHER, SELFPAY | PROVIDERS: PCP Nurse Practitioner Family; Visit Provider Nurse Practitioner Family | DX: E04.1 Nontoxic single thyroid nodule (principal); R51.9 Headache, unspecified; N95.1 Menopausal and female climacteric states; R06.83 Snoring; Z86.79 Personal history of other diseases of the circulatory system | CPT/HCPCS: 96127 ==

== ENCOUNTER → 2025-03-09 14:43 | Outpatient (REF) | payer OTHER, SELFPAY | LOC: HO.SL 14:43 | PROVIDERS: PCP Nurse Practitioner Family; Visit Provider Nurse Practitioner Family | DX: R51.9 Headache, unspecified (principal); R06.83 Snoring | CPT/HCPCS: 95806 ==

== ENCOUNTER → 2025-03-09 14:50 | Outpatient (BNV) | payer OTHER, SELFPAY | PROVIDERS: PCP Nurse Practitioner Family; Visit Provider Internal Medicine | DX: R06.83 Snoring (principal) | CPT/HCPCS: 95806 ==

== ENCOUNTER 2025-03-24 15:22 | Outpatient (AMB) | payer OTHER, SELFPAY ==
--- NOTE | 2025-03-24 15:50 | MHC.PC.OV ---
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: No Allergies Wellbutrin Adverse Reaction (Severe, Uncoded 03/24/25 16:06) Shakiness Medication List - Last Reconciled 03/24/25 by ISAC Wolfe- No Known Home Meds Tobacco use date assessed: 03/24/25 Dental Screening Dental Screen Date: 03/24/25 Did you have a dental visit in the last 12 months?: Yes Did you have a dental problem in the last 6 months where you did not have access to dental care?: No Was dental information given to patient?: Patient has dentist HPI HPI Comments History of Present Illness Details 44 y/o F with HTN, family hx of pancreatic ca (maternal aunt)Heterogeneous 1.7 nodule in the right thyroid lobe which could be further evaluated with follow-up sonography, Moderate spondylosis at the C5-C6 and C6-C7 levels (CTA 04/2024), perimenopause, obesity s/p polypectomy due to cervical polyp 2022, c section, tubal ligation Social: , 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 Optho Visit today to f/u on sleep study results See below for details Negative for NEHA or hypoxemia, + snoring This was done to eval cause of headaches and HTN Her BP cont to be WNL at home. Her Headaches are mild; There are there upon waking and sometimes not present at all. + intentional wt loss She was scheduled for US of thyroid yesterday but had to r/s Limited physical exam was conducted Awake alert NAD Speaking in full sentences Engaging, appropriate Skin pink warm and dry Mood and affect appropriate Assessment and Plan 1. HX of Hypertension The patient's hypertension remains stable with the current lifestyle management. No changes to the treatment regimen are needed at this time. 2. Headache Headache frequency has decreased. Sleep study negative for NEHA, but + snoring. Neuro referral in place, will keep at this time. 3. Snoring - trial OTC mouth gaurd to help w/ tooth grinding and snoring; trial nasal strips, snore pillow and/or nasal spray. See if this improves headaches and sleep. 3. Thyroid Nodule Further evaluation with a dedicated thyroid ultrasound is planned to assess the thyroid nodule, with potential biopsy and endocrinological follow-up as indicated. Patient Instructions - Continue monitoring blood pressure at home and maintain current lifestyle practices. - Look out for any changes in symptoms and report any significant alterations. - Telehealth visit to be arranged by my office for thyroid results once avail and sooner as needed. Telehealth Attestation The patient has been explained that this is an interactive (audio/video) telehealth encounter and what that consists of. The patient understands and wishes to proceed. [employer] platform was used. Total time spent caring for the patient today was 21 minutes. This includes time spent before the visit reviewing the chart, time spent during the visit, and time spent after the visit on documentation, reviewing laboratory results, diagnostic imaging, medications, performing a medically necessary evaluation, counseling on diagnoses, care coordination, ordering appropriate tests, ordering appropriate medications, review of tests performed by other providers, reporting test results with the patient, communication with other healthcare providers. [facility] Medical History (Updated 03/24/25 @ 17:47 by Robyn Sam, [facility]) Anxiety Sciatica Surgical History Hx of section Hx of tubal ligation Family History (Updated 01/06/25 @ 11:59 by Kaleb Marie MA) Maternal Aunt Pancreatic cancer Sister Asthma Clotting disorder Mother Clotting disorder Maternal Grandmother Pancreatic cancer Social History (Updated 01/06/25 @ 11:06 by Kaleb Marie MA) Household Members: Spouse and Children Both parents involved: No Caregiver staying overnight: No Housing: House Are you a primary medicare nurse to a significant other at home: Yes Do you presently have visiting nurse or other home services: No 75 years or older and lives alone: No Alcohol intake: current Alcohol intake frequency: a few times a month Patient Tobacco Use Status: Former Tobacco user e-Cigarette/Vaping Use: Never Used Second Hand Smoke Exposure: No Current occupational status: employed 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 Sexual orientation: Straight/Heterosexual Gender identity: Female Cognitive needs: No Hearing needs: No Vision needs: No Questionnaire Thrive Questionnaire Date Thrive assessed: 12/30/24 I am a: Patient What is your living situation today?: I have a steady place to live Within the past 12 months, did the food you bought not last and you didn't have the money to get more?: Never true Within the past 12 months, did you worry whether your food would run out before you got money to buy more?: Never true Do you have trouble paying for medicines?: No Do you have trouble getting transportation to medical appointments?: No Do you have trouble paying your heating and electricity bill?: No Do you have trouble taking care of your child, family member or friend?: No Do you have trouble with day-to-day activities such as bathing, preparing meals, shopping, managing finances, etc.?: No Are you currently unemployed and looking for a job?: No Are you interested in more education?: No Please select the resources that you would like help with: None Currently or been in a relationship where the following occur: No concerns reported THRIVE Score: 0 DEDRA-7 AMB Questionnaire DEDRA-7 Date DEDRA - 7 assessed: 02/17/25 Source: Developed by Drs. Mainor Hogan, Starr Gutiérrez, Vladimir Liriano and colleagues, with an educational you from [employer]. Physical exam (Primary Care) Tobacco/Smoking Status: Tobacco use Status Tobacco use date assessed 03/24/25 03/24/25 15:52 Patient Tobacco Use Status Former Tobacco user 03/24/25 15:52 e-Cigarette/Vaping Use Never Used 03/24/25 15:52 Thrive Assessment: Date of Thrive Assessment Date Thrive assessed 12/30/24 03/24/25 15:52 Currently or been in a relationship where the following occur: No concerns reported Telehealth Telehealth Telehealth Platform: [facility] Location of provider rendering services: practice address Location of patient: address on file Patient Identification confirmed using: Name, : Yes Telehealth method: video Patient verbally consented to treatment: Yes Patient verbally consented to billing insurance company: Yes Patient informed of any privacy concerns related to visit: Yes Minutes spent on Phone/Video with Pt.: 9 Results Reviewed Results Reviewed: Coding Level of Care Code Tele Est Pt Level 3 (61762) Complex EM visit Add On G2211 Diagnoses History of hypertension Z86.79 New onset headache R51.9 Snoring R06.83 Thyroid nodule E04.1 Assessment & Plan Assessment & Plan (1) History of hypertension: Code(s): Z86.79 - Personal history of other diseases of the circulatory system Category: Medical (2) New onset headache: Code(s): R51.9 - Headache, unspecified Category: Medical (3) Snoring: Comment: sleep study negative 02/2025 Code(s): R06.83 - Snoring Category: Medical (4) Thyroid nodule: Comment: Heterogeneous 1.7 nodule in the right thyroid lobe which could be further evaluated with follow-up sonography, (CTA 04/2024), Code(s): E04.1 - Nontoxic single thyroid nodule Category: Medical Plan .
--- OUTSIDE RECORDS SUMMARY | 2025-03-24 17:44 | XMS_ITS | Clinical Summary ---
Author Organization [employer] Address [address] [place] [address] Care Team Providers Care Slate Splitter Name Role Phone Unavailable Primary Care Provider Unavailabl e Immunizations Immunization Administration Dates Next Due Moderna Covid-19 Vaccine [...] Screening 1978 SDOH Screening 1978 Sigmoidoscopy 1978 Disability Screening 1978 Alcohol/Substance Use Screening 1990 Tobacco Screening 1990 Family Planning (PISQ) 1993 Hepatitis C Screening 1996 Hepatitis B Vaccines (1 of 3 - 19+ 3-dose series) 1997 Pap Smear 1999 Cervical Cancer Screening 2008 HPV/Cotest 2008 Mammogram 2018 DTaP/Tdap/Td Vaccines (2 - T d or Tdap) 01/16/2021 01/16/2011 COVID-19 Vaccine (2 - 2023-2 5 season) 2024 10/11/2022 Influenza Vaccine (Season Ended) 2025 Zoster Vaccines (1 of 2) 2028 RSV [...] patient's age to complete this topic Meningococcal B Vaccine Aged Out No l onger eligible based on patient's age to complete [...] patient's age to complete this topic Insurance [employer] PPO
== END 2025-03-24 16:19 | disposition home or self-care (01) ==
LOC: HO.HMCFM 15:22
PROVIDERS: PCP Nurse Practitioner Family; Visit Provider Nurse Practitioner Family
DX: Z86.79 Personal history of other diseases of the circulatory system (principal); R51.9 Headache, unspecified; R06.83 Snoring; E04.1 Nontoxic single thyroid nodule

== ENCOUNTER → 2025-03-24 15:22 | Outpatient (BNVA) | payer OTHER, SELFPAY | PROVIDERS: PCP Nurse Practitioner Family; Visit Provider Nurse Practitioner Family | DX: Z13.89 Encounter for screening for other disorder (principal) ==